=== PATIENT | male | born 1945 | race Caucasian/White ===

== ENCOUNTER 2018-04-13 15:39 | Outpatient (RCR) | payer MEDICARE, BC | END 2018-05-12 | disposition home or self-care (01) | LOC: WCC 15:39 | DX: L97.514 Non-pressure chronic ulcer of other part of right foot with necrosis of bone (principal); E11.621 Type 2 diabetes mellitus with foot ulcer; M86.671 Other chronic osteomyelitis, right ankle and foot; Z79.4 Long term (current) use of insulin | CPT/HCPCS: 71046; 82962; G0277; G0463 ==

== ENCOUNTER 2018-04-13 16:53 | Outpatient (CLI) | payer MEDICARE, BC ==
--- NOTE | 2018-04-14 11:49 | Diagnostic Imaging Report ---
Indication: Cough Comparison: None 2 views of the chest obtained. Findings: Interstitial edema suspected with slightly prominent pulmonary vascularity and borderline cardiomegaly. Bones are osteopenic. Surgical clips noted in the upper abdomen. IMPRESSION: Suspected mild interstitial edema. Correlate clinically
== END 2018-04-13 18:53 | disposition home or self-care (01) ==
LOC: RAD 16:53
DX: R05 Cough (principal); M85.80 Other specified disorders of bone density and structure, unspecified site
CPT/HCPCS: 71046

== ENCOUNTER 2018-05-13 12:46 | Outpatient (RCR) | payer MEDICARE, BC | END 2018-06-12 | disposition home or self-care (01) | LOC: WCC 12:46 | DX: L97.514 Non-pressure chronic ulcer of other part of right foot with necrosis of bone (principal); M86.671 Other chronic osteomyelitis, right ankle and foot; E11.621 Type 2 diabetes mellitus with foot ulcer; I10 Essential (primary) hypertension; Z89.429 Acquired absence of other toe(s), unspecified side | CPT/HCPCS: 82962; G0277 ==

== ENCOUNTER 2018-06-16 10:09 | Outpatient (RCR) | payer MEDICARE, BC | END 2018-07-12 | disposition home or self-care (01) | LOC: WCC 10:09 | DX: M86.671 Other chronic osteomyelitis, right ankle and foot (principal); L97.514 Non-pressure chronic ulcer of other part of right foot with necrosis of bone; E11.621 Type 2 diabetes mellitus with foot ulcer; E11.9 Type 2 diabetes mellitus without complications; I10 Essential (primary) hypertension; Z89.411 Acquired absence of right great toe | CPT/HCPCS: 82962; G0277 ==

== ENCOUNTER 2018-07-13 09:22 | Outpatient (RCR) | payer MEDICARE, BC | END 2018-08-12 | disposition home or self-care (01) | LOC: WCC 09:22 | DX: M86.671 Other chronic osteomyelitis, right ankle and foot (principal); L97.514 Non-pressure chronic ulcer of other part of right foot with necrosis of bone; E11.621 Type 2 diabetes mellitus with foot ulcer; I10 Essential (primary) hypertension; E11.9 Type 2 diabetes mellitus without complications | CPT/HCPCS: 82962; G0277 ==